=== PATIENT | male | born 1965 | race Caucasian/White ===

== ENCOUNTER → 2021-03-29 | Outpatient (CLI) | payer MEDICARE ==
--- NOTE | 2021-03-29 13:31 | RAD ---
EXAM: CT head without contrast INDICATION: Dizzy for 2 days COMPARISON: None TECHNIQUE: Axial CT imaging through the head without intravenous contrast. One or more of the following individualized dose reduction techniques were utilized for this examinat ion: 1. Automated exposure control 2. Adjustment of the mA and/or kV according to patient size 3. Use of iterative reconstruction technique. FINDINGS: The ventricles and sulci are normal. Do-white matter differentiation is maintained. There is no int racranial hemorrhage, acute infarct, or mass lesion. Basal cisterns are clear. The skull and scalp ar e intact. Paranasal sinuses and mastoid air cells are clear. Globes and orbits are intact.. IMPRESSION: No acute intracranial abnormality. Electronically signed by: Quynh Bauer MD (03/29/2021 1:29 PM) [id number]
== END ==
LOC: CT 13:09
PROVIDERS: ATTEND Family Medicine
DX: R42 Dizziness and giddiness (principal)
CPT/HCPCS: 70450

== ENCOUNTER 2021-06-13 10:19 | Emergency (ER) | payer MEDICARE ==
[~2021-06-13] VITALS: Ht 175.3 cm; Wt 104.9 kg
[2021-06-13 10:40] VITALS: BP 163/105
[2021-06-13] MEDS ORDERED: DIPH,PERTUSS(ACELL),TET VAC/PF 0.5 ML SYRINGE. VAX IM ONE (11:30)
--- NOTE | 2021-06-13 12:15 | RAD ---
EXAM: PA and lateral views of the left hand DATE: 06/13/2021 11:23 AM INDICATION: Reason: LACERATION LEFT INDEX FINGER / Spl. Instructions: / History: . COMPARISON: No Prior FINDINGS/ IMPRESSION: Marked soft tissue swelling about the left index finger with soft consistent with provided history of laceration. Punctate radiopaque density seen on the lateral view may represent retained foreign body or be on the skin surface. Electronically signed by: Jamir Garcia MD (06/13/2021 12:13 PM) [id number]
[2021-06-13] MEDS ORDERED: CEPH500T PO (12:26)
--- NOTE | 2021-06-13 12:27 | PHYS DOC ---
Past History Past Surgical History: No Surgical History (EVIN MARTINEZ APRN) Alcohol Use: None Additional Alcohol Information: UNKNOWN Social History Narrative: UNKNOWN (EVIN MARTINEZ APRN) General Adult EDM: Chief Complaint: FINGER INJURY HPI: HPI: Patient is a 55-year-old male who presents with left index finger laceration. Patient states that 2 days ago he cut his finger on a metal fence. Patient has full range of motion and sensation is intact. Patient is denying pain. Unknown last tetanus. (EVIN MARTINEZ APRN) Review of Systems: Review of Systems: Constitutional: Denies fever or chills Eyes: Denies change in visual acuity HENT: Denies nasal congestion or sore throat Respiratory: Denies cough or shortness of breath Cardiovascular: Denies chest pain or edema GI: Denies abdominal pain, nausea, vomiting, bloody stools or diarrhea : Denies dysuria Musculoskeletal: Denies back pain or joint pain Integument: Swelling and laceration to left, index finger Neurologic: Denies headache, focal weakness or sensory changes Endocrine: Denies polyuria or polydipsia Lymphatic: Denies swollen glands Psychiatric: Denies depression or anxiety (EVIN MARTINEZ APRN) Current Medications: Current Meds: Current Medications Medications (Trade) Dose Ordered Sig/Brad Start Time Stop Time Status Last Admin Dose Admin Diphtheria/ Pertussis/Tetanus Vacc (ADACEL TDap SYRINGE) 0.5 ml ONCE ONCE 06/13/21 11:30 06/13/21 11:31 DC 06/13/21 11:39 0.5 ML (EVIN MARTINEZ APRN) Allergies: Allergies: Allergies Coded Allergies Type Severity Reaction Last Updated Verified No Known Drug Allergies 06/13/21 No (EVIN MARTINEZ APRN) Physical Exam: PE: Constitutional: Well developed, well nourished, no acute distress, non-toxic appearance. [] HENT: Normocephalic, atraumatic, bilateral external ears normal, oropharynx moist, no oral exudates, nose normal. [] Eyes: PERRLA, EOMI, conjunctiva normal, no discharge. [] Neck: Normal range of motion, no tenderness, supple, no stridor. [] Cardiovascular:Heart rate regular rhythm, no murmur [] Lungs & Thorax: Bilateral breath sounds clear to auscultation [] Abdomen: Bowel sounds normal, soft, no tenderness, no masses, no pulsatile masses. [] Skin: Warm, dry, no erythema, no rash. [] Back: No tenderness, no CVA tenderness. [] Extremities: No tenderness, no cyanosis, no clubbing, ROM intact, no edema. [] Neurologic: Alert and oriented X 3, normal motor function, normal sensory function, no focal deficits noted. [] Psychologic: Affect normal, judgement normal, mood normal. [] (EVIN MARTINEZ APRN) Current Patient Data: Vital Signs: Vital Signs Date Time Temp Pulse Resp B/P (MAP) Pulse Ox O2 Delivery O2 Flow Rate FiO2 06/13/21 10:40 98.3 73 16 163/105 98 Room Air (EVIN MARTINEZ APRN) EKG: EKG: [] (EVIN MARTINEZ APRN) Radiology/Procedures: Radiology/Procedures: []EXAM: PA and lateral views of the left hand DATE: 06/13/2021 11:23 AM INDICATION: Reason: LACERATION LEFT INDEX FINGER / Spl. Instructions: / History: . COMPARISON: No Prior FINDINGS/ IMPRESSION: Marked soft tissue swelling about the left index finger with soft consistent with provided history of laceration. Punctate radiopaque density seen on the lateral view may represent retained foreign body or be on the skin surface. Electronically signed by: Jamir Garcia MD (06/13/2021 12:13 PM) [id number] (EVIN MARTINEZ APRN) Heart Score: C/O Chest Pain: No Risk Factors: Risk Factors: DM, Current or recent (<one month) smoker, HTN, HLP, family history of CAD, obesity. Risk Scores: Score 0 - 3: 2.5% MACE over next 6 weeks - Discharge Home Score 4 - 6: 20.3% MACE over next 6 weeks - Admit for Clinical Observation Score 7 - 10: 72.7% MACE over next 6 weeks - Early Invasive Strategies (EVIN MARTINEZ APRN) Course & Med Decision Making: Course & Med Decision Making Pertinent Labs and Imaging studies reviewed. (See chart for details) [] 55-year-old male presents with left index finger laceration. Patient states that he cut his finger on a metal fence 2 days ago. Patient has swelling. No signs of infection. Patient is able to move his finger and sensation is intact. Patient denies pain. X-ray of finger is negative for foreign body or fracture. Tetanus given due to last unknown vaccination. Patient given prescription for Keflex to prevent infection. Patient instructed to follow-up in 48 hours if pain or swelling gets worse. Ibuprofen Tylenol for discomfort. (EVIN MARTINEZ APRN) Course & Med Decision Making I oversaw on the above date of service of this patient. This patient was evaluated, examined, treated, and dispositioned from the emergency department by the mid-level practitioner. Although I was working at the time , no assistance was requested. Electronically signed, Divya Clifton DO (DIVYA CLIFTON DO) Krystle Disclaimer: Dragdomonique Disclaimer: This electronic medical record was generated, in whole or in part, using a voice recognition dictation system. (EVIN MARTINEZ APRN) Departure Departure: Impression: Primary Impression: Laceration Disposition: HOME / SELF CARE / HOMELESS Condition: STABLE Referrals: MED GERBER MD (PCP) Patient Instructions: Laceration Care, Adult, [id number] Additional Instructions: You were seen in the emergency room for a laceration to your left finger. Your finger appears to be healing and I do not see any signs of infection. I am sending you home with a prescription for Keflex to take to prevent infection. You were also given a tetanus vaccination. The x-ray of your finger was negative for foreign body or fracture. Return to the emergency room or your PCP in 48 hours if symptoms worsen. You can take ibuprofen and Tylenol at home if you have discomfort. EMERGENCY DEPARTMENT GENERAL DISCHARGE INSTRUCTIONS Thank you for coming to [facility] (ED) today and trusting us with you care. We trust that you had a positivie experience in our Emergency Department. If you wish to speak to the department management, you may call the director at [phone]. YOUR FOLLOW UP INSTRUCTIONS ARE FOLLOWS: 1. Do you have a private Doctor? If you do not have a private doctor, please ask for a resource list of physicians or clinics that may be able to assist you with follow up care. 2. The Emergency Physician has interpreted your x-rays. The X-Ray specialist will also review them. If there is a change in the findings, you will be notified in 48 hours when at all possible. 3. A lab test or culture has been done, your results will be reviewed and you will be notified if you need a change in treatment. ADDITIONAL INSTRUCTIONS AND INFORMATION: 1. Your care today has been supervised by a physician who is specially trained in emergency care. Many problems require more than one evaluation for a complete diagnosis and treatment. We recommend that you schedule your follow up appointment as recommended to ensure complete treatment of you illness or injury. If you are unable to obtain follow up care and continue to have a problem, or if your condition worsens, we recommend that you return to the ED. 2. We are not able to safely determine your condition over the phone nor are we able to give sound medical advice over the phone. For these safety reasons, if you call for medical advice we will ask you to come to the ED for further evaluation. 3. If you have any questions regarding these discharge instructions please call the ED at [phone]. SAFETY INFORMATION: In the interest of safety, wellness, and injury prevention; we encourage you to wear your sealbelt, if you smoke; quite smoking, and we encourage family to use a protective helmet for bicycling and other sporting events that present an increased risk for head injury. IF YOUR SYMPTOMS WORSEN OR NEW SYMPTOMS DEVELOP, OR YOU HAVE CONCERNS ABOUT YOUR CONDITION; OR IF YOUR CONDITION WORSENS WHILE YOU ARE WAITING FOR YOUR FOLLOW UP APPOINTMENT; EITHER CONTACT YOUR PRIMARY CARE DOCTOR, THE PHYSICIAN WHOSE NAME AND NUMBER YOU WERE GIVEN, OR RETURN TO THE ED IMMEDIATELY. Scripts Cephalexin (CEPHALEXIN) 500 Mg Tablet 1 TAB PO BID for LACERATION, #20 TAB Prov: EVIN MARTINEZ APRN 06/13/21 EVIN MARTINEZ APRN Jun 13, 2021 12:27 DIVYA CLIFTON DO Jun 14, 2021 06:45
== END 2021-06-13 12:45 | disposition home or self-care (01) ==
LOC: ER 10:19
DX: S61.211A Laceration without foreign body of left index finger without damage to nail, initial encounter (principal); W26.8XXA Contact with other sharp object(s), not elsewhere classified, initial encounter; Y93.89 Activity, other specified; Y92.89 Other specified places as the place of occurrence of the external cause; Y99.8 Other external cause status
CPT/HCPCS: 73120; 90471; 90715; 99283